=== PATIENT | male | born 1985 | race Caucasian/White ===

== ENCOUNTER 2024-12-31 10:46 | Emergency (ER) | payer MEDICAID, OTHER ==
[~2024-12-31] VITALS: Ht 200.7 cm; Wt 98.6 kg
[2024-12-31 12:02] VITALS: BP 140/78; PULSE 101; RESP 20; TEMP 98.3; O2SAT 97
--- NOTE | 2024-12-31 12:06 | DVH ---
CLINICAL INDICATION: 3RD DIG CRUSHED TECHNIQUE: XY L HAND 3V XRAY Comparison: None FINDINGS/IMPRESSION: : There is no evidence of acute fracture or dislocation. Soft tissues are unremarkable.
--- NOTE | 2024-12-31 12:24 | ED.PDOC ---
Musculoskeletal HPI Comments 39 year old male presents for crushed injury to the left hand 3rd nail 30 lb weight fell on finger denies ROM Started 14 days ago Chief Complaint: Upper Extremity Time Seen by MD: 11:37 Primary Care Provider: UNKNOWN Reviewed Notes: Nurses Notes, Medications, Allergies Allergies: Coded Allergies: Amoxicillin (Verified Allergy, Unknown, 12/31/24) Information Source: Patient Mode of Arrival: Ambulatory Family History Family History: Reviewed,noncontributory to illness All Other Systems: Reviewed and Negative (per hpi) Physical Exam General Appearance: No Apparent Distress, Normal HEENT: Normal ENT Inspection, Pharynx Normal, TMs Normal Neck: Full Range of Motion, Non-Tender, Normal, Normal Inspection Respiratory: Chest Non-Tender, Lungs Clear, No Accessory Muscle Use, No Respiratory Distress, Normal Breath Sounds Cardiovascular: No Edema, No JVD, No Murmur, No Gallop, Normal Peripheral Pulses, Regular Rate/Rhythm Breast Exam: Deferred Gastrointestinal: No Organomegaly, Non Tender, No Pulsatile Mass, Normal Bowel Sounds, Soft Genitalia: Deferred Pelvic: Deferred Rectal: Deferred Extremities: No calf tenderness, Normal capillary refill, Normal inspection, Normal range of motion, Non-tender, No pedal edema Musculoskeletal : Apperance: Normal Neurologic: Alert, No Motor Deficits, Normal Affect, Normal Mood, No Sensory Deficits Cerebellar Function: Normal Reflexes: Normal Skin: Dry, Normal Color, Warm Lymphatic: No Adenopathy Was a procedure done? Was a procedure done?: No Images 1 - Subungual hematoma Differential Diagnosis EXT Differential Diagnosis: Fracture, Sprain, Dislocation X-Ray, Labs, Meds, VS Vital Signs Date Time Temp Pulse Resp B/P (MAP) Pulse Ox O2 Delivery O2 Flow Rate FiO2 12/31/24 12:02 98.3 101 20 140/78 (98) 97 98.3 12/31/24 12:02 101 20 97 Room Air 12/31/24 10:56 98.3 101 20 140/78 (98) 97 X-Ray, Labs, Meds, VS Comment Presentation most consistent with simple Subungual Hematoma post injury within last 48 hours. No overt evidence of Flexor or Extensor tendon dysfunction, Compartment syndrome, Arterial or Nerve injury. Interventions: Trephination. Defer splinting given no fracture on XR. Rx: Patient instructed to soak affected nail in warm water two to three times daily for the next week. Disposition: Discharge home with strict return precautions and advice to follow up with primary care doctor in next 24-48 hours for further evaluation. Time of 1ST Reevaluation: 12:00 Reevaluation 1ST: Improved Patient Education/Counseling: Diagnosis, Treatment Family Education/Counseling: Diagnosis, Treatment Departure 1 Departure Time of Disposition: 12:24 Impression: Primary Impression: Subungual hematoma of fingernail Qualified Codes: S60.10XA - Contusion of unspecified finger with damage to nail, initial encounter Disposition: HOME / SELF CARE / HOMELESS Condition: Stable Discharged With: Self Critical Care Note Critical Care Time?: No Stability Stability form required: No Heart Score Heart Score: Heart Score Response (Comments) Value History N/A 0 EKG N/A 0 Age N/A 0 Risk Factors N/A 0 Troponin N/A 0 Total 0 GLENN SOMMERS NP Dec 31, 2024 12:24
== END 2024-12-31 12:35 | disposition home or self-care (01) ==
LOC: ER 10:46
DX: S60.032A Contusion of left middle finger without damage to nail, initial encounter (principal); Z88.0 Allergy status to penicillin; W23.0XXA Caught, crushed, jammed, or pinched between moving objects, initial encounter; Y93.89 Activity, other specified; Y92.89 Other specified places as the place of occurrence of the external cause; Y99.8 Other external cause status
CPT/HCPCS: 73130